=== PATIENT | male | born 1945 | race Caucasian/White ===

== ENCOUNTER 2019-04-25 23:27 | Emergency (ER) | payer MEDICARE, OTHER ==
[~2019-04-25] VITALS: Ht 165.1 cm; Wt 93.0 kg
[~2019-04-25 23:27] MED LIST: Z.0.AMLODIPINE BESYL PO; Z.0.METOPROLOL TART5 PO; Z.0.QUINAPRIL HCL40 PO
--- NOTE | 2019-04-26 00:45 | Diagnostic Imaging Report ---
EXAMINATION: CXR 2 VIEW - HOPD INDICATION: Cough, cold COMPARISON: None FINDINGS: TUBES and LINES: None. LUNGS: Lungs are well inflated. Central bronchial wall thickening. No consolidations. PLEURA: No pleural effusion or pneumothorax. HEART AND MEDIASTINUM: The cardiomediastinal silhouette is unremarkable. BONES AND SOFT TISSUES: There are degenerative changes in the spine. Soft tissues are unremarkable. UPPER ABDOMEN: No free air under the diaphragm. IMPRESSION: Findings of bronchitis. No consolidations. Signed by: Yuri Ruth DO on 04/26/2019 12:42 AM
== END 2019-04-26 01:08 | disposition home or self-care (01) ==
LOC: FSED 23:27
DX: R05 Cough (principal); J20.9 Acute bronchitis, unspecified
CPT/HCPCS: 71046; 93005; 99283

== ENCOUNTER → 2019-07-02 | Day surgery (SDC) | payer MEDICARE, OTHER ==
[2019-06-29 10:08] LABS: BASOPHILS % 0.7 % (0.0-1.0); EOSINOPHILS # (AUTO) 0.1 (0.0-0.4); EOSINOPHILS % 1.2 % (0.0-6.0); HEMATOCRIT 47.6 % (38.2-49.6); HEMOGLOBIN 15.9 g/dL (14.0-18.0); LYMPHOCYTES # (AUTO) 1.1 (1.0-3.2); LYMPHOCYTES % 18.6 % (18.0-39.1); MEAN CORPUSCULAR HEMOGLOBIN 31.2 pg (28-32); MEAN CORPUSCULAR HGB CONC 33.4 g/dL (31-35); MEAN CORPUSCULAR VOLUME 93.3 fL (81-99); MONOCYTES # (AUTO) 0.5 (0.2-0.8); MONOCYTES % 9.3 % (4.4-11.3); NEUTROPHILS % 69.8 % (38.7-80.0); PLATELET COUNT 205 x10e3/uL (140-360); RED CELL DISTRIBUTION WIDTH 13.4 % (11.7-14.4)
[2019-06-29 10:30] LABS: ALANINE AMINOTRANSFERASE 26 IU/L (0-55); ALBUMIN 3.9 g/dL (3.5-5.0); ALBUMIN/GLOBULIN RATIO 1.5 (0.8-2.0); ALKALINE PHOSPHATASE 55 IU/L (40-150); ANION GAP 14.1 mmol/L (8-16); BLOOD UREA NITROGEN 17 mg/dL (7-26); BUN/CREATININE RATIO 15 (6-25); CALCIUM 9.6 mg/dL (8.4-10.2); CARBON DIOXIDE 27 mmol/L (22-29); CHLORIDE 105 mmol/L (98-107); CREATININE, SERUM 1.13 mg/dL (0.72-1.25); EST GLOMERULAR FILTRATION RATE > 60 ML/MIN (60-); GLUCOSE 106 mg/dL (74-118); POTASSIUM 4.1 mmol/L (3.5-5.1); SODIUM 142 mmol/L (136-145)
[~2019-07-02] VITALS: Ht 165.1 cm; Wt 95.3 kg
[~2019-07-02] MED LIST changes: +BENZOCAINE 20% SPR 60 ML CAN ONE; +ELIQUIS2.5 MG PO; +FUROSEMIDE40 MG PO; +METOPROLOL SUCC25 MG PO; +PROPOFOL IV EMULSION 10 MG/ML 20 ML VIAL ONE; +QUINAPRIL HCL20 MG PO; +SODIUM CHLORIDE 0.9% 1000ML 1,000 ML ONE
--- OUTSIDE RECORDS SUMMARY | 2019-07-02 10:53 | XMS REPORT ---
Author Author [facility] Address Unknown Phone Unavailable Care Team Providers Care Associate Professor Of Literacy Name Role Phone YARI LOWE Unavailable Unavailable Problems This patient has no known problems. Allergies, Adverse Reactions, Alerts This patient has no known allergies or adverse reactions. Medications This patient has no known medications. Results Test Description Test Time Test Comments Text Results Atomic Results Result Comments CXR 2 VIEW - HOPD 2019-04-26 00:40:00 [facility] [address] [address] Patient Name: EAMON LANZA MR #: [id number] : 1945 Age/Sex: 73/M Req #: [id number] Adm Physician: Ordered by: YARI LOWE DO Report #: [id number] Location: [facility] Room/Bed: Procedure: [id number] HOPD/CXR 2 VIEW - HOPD Exam Date: 04/26/19 Exam Time: 0035 REPORT STATUS: Signed EXAMINATION: CXR 2 VIEW - HOPD INDICATION: Co ugh, cold COMPARISON: None FINDINGS: TUBES and LINES: None. LUNGS: Lungs are well inflated. Central bronchial wall thickening. No consolidations. PLEURA: No pleural effusion or pneumothorax. HEART AND MEDIASTINUM: The cardiomediastinal silhouette is unremarkable. BONES AND SOFT TISSUES: There are degenerative changes in the spine. Soft tissues are unremarkable. UPPER ABDOMEN: No free air under the diaphragm. IMPRESSION: Findings of bronchitis. No consolidations. Signed by: Yuri Ruth DO on 04/26/2019 12:42 AM Dictated By: YURI RUTH DO Transcribed By: CRISTOFER on 04/26/1941 COPY TO: YARI LOWE DO
[2019-07-02 13:30] VITALS: BP 118/67
--- NOTE | 2019-07-02 13:30 | NUR ---
1252 - pt received for JOYCE, placed on bedside monitoring OR 5 - Antonia/Fadi . pt positioned for procedure. IV site patent to Right anterior AC , VS -stable , controlled AFIB rhythm 1257 - hurricaine spray (spray 1) to oral cavity by XX 1300 - all responsible staff present, Timeout performed 1301 - bite block positioned and JOYCE probe passed 1310 - agitated saline injected for bubble study 1311 - JOYCE probe removed , no gross trauma or distress observed 1315 - pt taken to PACU 11 for further recovery with LESLI Knight, report off to Joanie ROSE ,
== END | disposition home or self-care (01) ==
LOC: CATH LAB 10:45
PROVIDERS: ATTEND Internal Medicine Cardiovascular Disease
DX: I48.91 Unspecified atrial fibrillation (principal); Z95.818 Presence of other cardiac implants and grafts; I10 Essential (primary) hypertension; Z88.0 Allergy status to penicillin; Z01.810 Encounter for preprocedural cardiovascular examination; Z01.812 Encounter for preprocedural laboratory examination; Z79.02 Long term (current) use of antithrombotics/antiplatelets
CPT/HCPCS: 36415; 80053; 85025; 93312; 93320; 93325; J2704; J7030; 93307

== ENCOUNTER 2024-11-19 09:25 | Day surgery (SDC) | payer MEDICARE, OTHER ==
[2024-11-18 11:47] LABS: BASOPHILS # (AUTO) 0.1 (0.0-0.1); BASOPHILS % 0.9 % (0.0-1.0); EOSINOPHILS # (AUTO) 0.2 (0.0-0.4); HEMATOCRIT 43.8 % (38.2-49.6); HEMOGLOBIN 14.5 g/dL (14.0-18.0); LYMPHOCYTES % 17.7 % (18.0-39.1); MEAN CORPUSCULAR HEMOGLOBIN 30.5 pg (28-32); MEAN CORPUSCULAR HGB CONC 33.1 g/dL (31-35); MEAN CORPUSCULAR VOLUME 92.2 fL (81-99); MONOCYTES # (AUTO) 0.4 (0.2-0.8); MONOCYTES % 7.4 % (4.4-11.3); NEUTROPHILS % 70.6 % (38.7-80.0); PLATELET COUNT 209 x10e3/uL (140-360); RED BLOOD COUNT 4.75 x10e6/uL (4.3-5.7); RED CELL DISTRIBUTION WIDTH 13.9 % (11.7-14.4); WHITE BLOOD COUNT 5.66 x10e3/uL (4.8-10.8)
[2024-11-18 11:53] LABS: INR 0.95; PROTHROMBIN TIME 13.6 seconds (11.9-14.5)
[2024-11-18 11:58] LABS: ANION GAP 15.7 mmol/L (8-16); CREATININE, SERUM 1.57 mg/dL (0.72-1.25); POTASSIUM 3.7 mmol/L (3.5-5.1)
[~2024-11-19] VITALS: Ht 165.1 cm; Wt 99.8 kg
[2024-11-19] VITALS (11 sets, daily range): BP systolic 104–145; BP diastolic 51–67; PULSE 40–54; RESP 15–20; TEMP 97–97.7; O2SAT 97–100
[~2024-11-19 09:25] MED LIST changes: -BENZOCAINE 20% SPR 60 ML CAN ONE; -PROPOFOL IV EMULSION 10 MG/ML 20 ML VIAL ONE; -SODIUM CHLORIDE 0.9% 1000ML 1,000 ML ONE
[2024-11-19] MEDS ORDERED: LISINOPRIL10 MG PO (10:13)
[2024-11-19] MEDS ORDERED: COREG6.25 MG PO (10:13)
[2024-11-19] MEDS ORDERED: LIPITOR20 MG PO (10:13)
[2024-11-19] MEDS ORDERED: ASPIRIN81 MG PO (10:13)
[2024-11-19] MEDS ORDERED: ZOLOFT50 MG (10:13)
[2024-11-19] MEDS ORDERED: HEPARIN SOD (PORCINE) 1000 UNIT/ML 30ML ONE (10:45)
[2024-11-19] MEDS ORDERED: VERAPAMIL HCL 2.5 MG/ML 2 ML VIAL ONE (10:45)
[2024-11-19] MEDS ORDERED: HEPARIN SOD/SOD CHLORIDE 2,000 ML ONE (10:46)
[2024-11-19] MEDS ORDERED: IOPAMIDOL 370 MG/ML 100 ML INFUS..BTL INJ ONE (10:46)
[2024-11-19] MEDS ORDERED: LIDOCAINE HCL 2% LOCAL 20 ML VIAL ONE (10:46)
[2024-11-19] MEDS ORDERED: SODIUM CHLORIDE 0.9% 1000ML 1,000 ML ONE (10:46)
[2024-11-19] MEDS ORDERED: MIDAZOLAM HCL 2 MG/2 ML VIAL ONE (10:55)
[2024-11-19] MEDS ORDERED: FENTANYL CITRATE/PF 100MCG/2 ML INJ ONE (10:56)
[2024-11-19] MEDS ORDERED: ADENOSINE 6MG/2ML 0 ML ONE (11:28)
[2024-11-19] MEDS ORDERED: SODIUM CHLORIDE 0.9% 250ML 0 ML ONE (11:29)
[2024-11-19] MEDS ORDERED: ADENOSINE 3MG/1ML 30ML VIAL ONE (11:30)
== END 2024-11-19 14:05 | disposition home or self-care (01) ==
LOC: CATH LAB 09:25
PROVIDERS: ATTEND Internal Medicine Cardiovascular Disease
DX: I25.119 Atherosclerotic heart disease of native coronary artery with unspecified angina pectoris (principal); I48.91 Unspecified atrial fibrillation; I10 Essential (primary) hypertension; Z88.2 Allergy status to sulfonamides; Z79.82 Long term (current) use of aspirin; Z79.899 Other long term (current) drug therapy; Z68.37 Body mass index [BMI] 37.0-37.9, adult; Z82.49 Family history of ischemic heart disease and other diseases of the circulatory system; Z82.3 Family history of stroke
CPT/HCPCS: 36415; 76937; 80048; 85025; 85610; 93458; 93571; 99152; 99153; C1769; C1887; J0153; J1644; J2003; J2250; J7030; J7050; Q9967